=== PATIENT | female | born 1945 | race Caucasian/White ===

== ENCOUNTER 2016-12-30 15:53 | Observation (INO) | payer MEDICARE, BC ==
--- NOTE | 2016-12-30 16:16 | ERNOTE ---
Medical Problem HPI - General Chief Complaint: General Assessment Time Seen by Provider: 12/30/16 16:05 Source: patient Exam Limitations: no limitations - Immun/Allergies/Home Medications Immunizations: IMMUNIZATION HX Immunizations Up to Date Yes History of Influenza Vaccine Yes Hx Pneumococcal Vaccination Yes Allergies/Adverse Reactions: Allergies amoxicillin Allergy (Verified 12/30/16 17:02) Home Medications: HOME MEDICATIONS Albuterol Sulfate 2 puff IH Q6H PRN 09/06/13 [Last Taken Unknown] Benazepril HCl [Lotensin] 10 mg PO DAILY 09/06/13 [Last Taken Unknown] Clonazepam 2 mg PO HS 09/06/13 [Last Taken Unknown] Nystatin 1 appl TP PRN PRN 09/06/13 [Last Taken Unknown] Omeprazole 20 mg PO DAILY 09/06/13 [Last Taken Unknown] Acetaminophen [Acetaminophen Extra Strength] 500 mg PO Q6H PRN 01/02/14 [Last Taken Unknown] Chlorpheniramine Maleate [Chlor-Trimeton] 4 mg PO Q6H 01/02/14 [Last Taken Unknown] Cod Liver Oil/Zinc Oxide [Desitin] 113 gm TP PRN PRN 01/02/14 [Last Taken Unknown] EPINEPHrine [Epipen 2-Julian] 0.3 mg IJ PRN PRN 01/02/14 [Last Taken Unknown] Fluticasone Propionate [Flovent Diskus] 50 mcg IH DAILY 01/02/14 [Last Taken Unknown] Polyvinyl Alcohol [Artificial Tears] 15 ml OP QID PRN 01/02/14 [Last Taken Unknown] Pramipexole Di-HCl [Mirapex] 1.5 mg PO BID 01/02/14 [Last Taken Unknown] Triamterene/Hydrochlorothiazid [Maxzide 37.5MG/25 MG] 1 tab PO DAILY 01/02/14 [ Last Taken Unknown] Cholecalciferol (Vitamin D3) [Vitamin D3] 1,000 unit PO DAILY 12/30/16 [Last Taken Unknown] buPROPion HCL [Wellbutrin SR] 100 mg PO BID 12/30/16 [Last Taken Unknown] - History of Present History Narrative: Here for shortness of breath upon exertion of walking ten steps today when she was going to PT. She has been short of breath for the past two days but today it became worse. At physical therapy staff noted that the patient's heartbeat was irregular. Review of Systems - Review of Systems Constitutional: Present: no symptoms reported EYE: Present: no symptoms reported ENT: Present: no symptoms reported Respiratory: Present: See HPI Cardiology: Present: See HPI Gastrointestinal/Abdominal: Present: no symptoms reported Genitourinary: Present: no symptoms reported Musculoskeletal: Present: no symptoms reported Skin: Present: no symptoms reported - Patient's Past Medical History Patient History - Medical: Anxiety, Depression, GERD, Other Patient History - Cardiac/Respiratory: CPAP/BiPAP Home Use, Sleep Apnea Patient History - Cancer: No Hx of Cancer Patient History - Surgical Procedures: Appendectomy, Hysterectomy, Total Knee Replacement, Other, Hernia Repair Patient History - Other: None LMP (females 10-50): Menopausal - Social History Living Situations: home Abuse History: No History of abuse Psych History: Hx of Anxiety, Hx of Depression Smoking Status: Never smoker Alcohol Use: rarely Drug Use: none - Immunizations Immunizations Up to Date: Yes Hx Pneumococcal Vaccination: Yes History of Influenza Vaccine: Yes Physical Exam - Physical Exam General Appearance: Present: wd/wn, alert, no apparent distress, other - H and appears slightly nervous Neck: Present: normal inspection, nontender Respiratory: Present: no respiratory distress, normal breath sounds, no accessory muscle use, chest nontender, lungs clear - I do not appreciate any crackles upon auscultation of the lungs bilaterally Cardiovascular/Chest: Present: regular rate, rhythm, other - A Chin has a sinus rhythm however after every QRS she has a PVC Extremity Exam: Present: other - patient has 2+ pitting edema in both ankles and she states that this is new is well over the past 2 days. ED Progress - Results and Orders Patient's Lab Results:: I have reviewed the patient's lab results. - Vital Signs Patient's Vital Signs:: I have reviewed the patient's vital signs. Vital Signs: Vital Signs 12/30/16 15:55 Temperature 36.5 C Pulse Rate 67 Respiratory 13 Rate Blood Pressure 172/69 O2 Sat by Pulse 98 Oximetry - EKG EKG: NSR, other - normal sinus rhythm with PVCs - X-Ray X-Ray #1 X-Ray: chest - Progress/Reassessment Chief Complaint: General Assessment Plan - Plan Plan: This is a patient with a history of hypertension who has had progressive dyspnea on exertion which became worse today when walking up a ramp. Her first enzymes are negative however patient does have bilateral pitting edema and this examiner is concerned about her dyspnea on exertion as it has become progressively worse. Such Dr. Arita was counseled in regards to this patient for admission and further investigation. The frequent PVCs that the patient was having earlier on upon admission have since resolved. Of note is that patient now has normal sinus rhythm with infrequent PVCs and d-dimer and TSH and BNP are still pending Departure - Departure Clinical Impression: Exertional dyspnea Disposition: [facility] Condition: Fair
[2016-12-30 16:19] LABS: Hematocrit 36.8 % (37.0-47.0); Hemoglobin 12.5 gm/dL (12.5-16.0); Mean Cell Volume 94.1 fl (78-100); Mean Platelet Volume 11.6 fl (6.0-9.5); Neutrophil # 3.8 K/mm3 (1.3-6.0); Neutrophil % 60.4 % (42-75.0); Platelet Count 168 K/mm3 (150-450); Red Blood Count 3.91 M/mm3 (4.2-5.4); White Blood Count 6.3 K/mm3 (4.0-10.5)
[2016-12-30 16:46] LABS: Troponin I Less than 0.017 ng/ml (0.00-0.10)
[2016-12-30 16:50] LABS: ALT 26 U/L (19-67); AST 25 U/L (0-48); Albumin * 3.8 gm/dl (3.4-5.0); Alkaline Phosphatase * 54 U/L (50-170); Anion Gap 14.1 mmol/L (6.8-13.8); BUN/Creatinine Ratio 17.5 (9.0-21.6); Bilirubin, Total 0.3 mg/dL (0.0-1.1); Blood Urea Nitrogen 24 mg/dL (3-23); CKMB 5.1 ng/mL (0.0-9.0); Ca. Corrected For Albumin 8.3 mg/dL (8.4-10.2); Calcium * 8.5 mg/dL (7.9-10.9); Carbon Dioxide 27.2 mmol/L (24-32.6); Chloride 105 mmol/L (97-106); Glucose * 105 mg/dL (70-110); Magnesium 1.9 mg/dL (1.2-2.8); Potassium 4.3 mmol/L (3.4-4.6); Sodium 142 mmol/L (132-142); Total Protein 7.4 gm/dL (6.2-8.2)
[2016-12-30 17:33] LABS: TSH * 2.378 uIU/mL (0.358-3.74)
[2016-12-30] MEDS ORDERED: POTASSIUM CHLORIDE 20 MEQ TABLET.SA PO SCH (21:25)
[2016-12-30] MEDS ORDERED: FUROSEMIDE 10 MG/ML VIAL IV SCH (21:25)
[2016-12-30] MEDS ORDERED: ACETAMINOPHEN 500 MG TABLET PO PRN (22:04)
[2016-12-30] MEDS ORDERED: EPINEPHrine 0.3 MG DISP.SYRIN IM PRN (22:04)
[2016-12-30] MEDS ORDERED: COD LIVER OIL/ZINC OXIDE 113 APPL TUBE TP PRN (22:04)
[2016-12-30] MEDS ORDERED: POLYVINYL ALCOHOL 150 DROP BTL OP PRN (22:04)
--- NOTE | 2016-12-30 22:08 | HP ---
Chief Complaint - Chief Complaint Date of Service: 12/30/16 Time of Service: 20:00 Chief Complaint: "Worsening SOB with exertion, increasing leg swelling. ". Source of HPI- Pt; reliable, ER provider report. History of Present Illness: Mrs. Juarez is a 71-yr-old [place] pt who normally sees Dr. Gwyn Lord, a family practice physician in [place]. Her PMH is significant for: Asthma, Chronic Major depression, Fibromyalgia, Linchen Sclerosus, HTN, HLD, Restless Leg Syndrome, Obstructive Sleep Apnea & Osteoarthritis. Pt states that for the past 9 months, she has been dealing with SOB and her Internal Medicine physician at the [facility] has been working her up for the problem. She states that she was referred to a Room Service Bellhop at the [facility] and her PFTs were found to be normal and she will be having the similar test in 2 weeks. She reports that her SOB is mostly worsened with activities that cause exertion such as walking a longer distance or any area that has some incline. Otherwise, she says she can carry out other ADLs with ease and is usually 'able to push a cartful of supplies at [employer] without any SOB.' She can also go up and down the stairs at her home without any problems with her breathing. Today, she had an appt. at the PT facility here at [facility]. She states that she intentionally parked her car 6 car lengths to see how much activity she can tolerate. She reports that by the time she entered the building, she felt very SOB. The staff found out that her HR irregular during the PT session and she was referred to the Walk-in clinic. She denies fevers, coughing & chest pain. She report noting increasing swelling on her BLE within the last 2 days with the LT> RT. She however has no difficulty in assuming a flat lying position during sleep. During evaluation at the ED, the CXR did not have any obvious findings to suggest Pneumonia, Pulmonary vascular congestion or pleural effusion.The lab-work involving D-dimer, BNP,CBC & BMP were all unremarkable. The EKG showed NSR with PVCs and troponin was negative. She will be admitted under observation status for remote telemetry monitoring. - Patient's Past Medical History Patient History - Medical: Anxiety, Depression, Fibromyalgia, GERD, Osteoarthritis, Other - Fibromyalgia, Linchen Sclerosus Patient History - Cardiac/Respiratory: Asthma, Hypertension, Hyperlipidemia, CPAP/BiPAP Home Use, Sleep Apnea, Other Patient History - Cancer: No Hx of Cancer Patient History - Surgical Procedures: Appendectomy, Hysterectomy, Total Knee Replacement, Other, Hernia Repair Patient History - Other: None LMP (females 10-50): Menopausal - Family History Mother Family History - Medical: , Alzheimer's Disease, Diabetes Type 2 Insulin Dependent, Osteoporosis Family History - Cardiac/Respiratory: CVA/Stroke, Hypertension Family History - Cancer: No pertinent family hx Father Family History - Medical: , Other Family History - Cardiac/Respiratory: Hypertension Family History - Cancer: No pertinent family hx Brother Family History - Medical: Depression, Seizures Family History - Cardiac/Respiratory: CVA/Stroke, Myocardial Infarction Family History - Cancer: No pertinent family hx Sister Family History - Medical: Arthritis, Depression, Osteoarthritis, Other Family History - Cardiac/Respiratory: No pertinent hx Family History - Cancer: Breast Children Family History - Medical: Alcohol Abuse, Depression, Other Family History - Cardiac/Respiratory: No pertinent hx Family History - Cancer: No pertinent family hx - Social History Living Situations: spouse Abuse History: No History of abuse Psych History: Hx of Anxiety, Hx of Depression Smoking Status: Never smoker Have you smoked in the past 12 months: No Do you dip or chew tobacco: No Patient requests Smoking Cessation Consult: No Initiate information on Smoking Cessation: No Alcohol Use: rarely Drug Use: none - Immunizations Immunizations Up to Date: Yes Hx Pneumococcal Vaccination: Yes History of Influenza Vaccine: Yes Review Of Systems (GEN) - Review of Systems Generalized/Overall Review: Absent: Weakness, Chills, Fever, Malaise EENTM: Absent: Eye Pain, Blurred Vision, Tearing, Ear Pain, Ear Discharge Respiratory: Present: Shortness of Breath. Absent: Cough, Orthopnea, Stridor Cardiac: Present: Edema. Absent: Chest Pain, Palpitations, Syncope Abdominal: Absent: Nausea, Vomiting, Hematemesis, Abdominal Pain, Constipation, Diarrhea Genitourinary: Absent: Burning, Itching, Urgency, Frequency Musculoskeletal: Absent: Joint Pain, Back Pain, Joint Swelling, Muscle Pain Neurological: Absent: Headache, Anxiety, Depressed Skin: Absent: Dryness, Lesions, Rash Endocrine: Absent: Intolerance to Cold, Intolerance to Heat Misc: All systems neg except as marked Immunizations: IMMUNIZATION HX Immunizations Up to Date Yes History of Influenza Vaccine Yes Hx Pneumococcal Vaccination Yes Allergies/Adverse Reactions: Allergies Allergy/AdvReac Type Severity Reaction Status Date / Time amoxicillin Allergy Verified 12/30/16 17:02 Home Medications: HOME MEDICATIONS Albuterol Sulfate 2 puff IH Q6H PRN 09/06/13 [Last Taken Unknown] Benazepril HCl [Lotensin] 10 mg PO DAILY 09/06/13 [Last Taken Unknown] Clonazepam 2 mg PO HS 09/06/13 [Last Taken Unknown] Nystatin 1 appl TP PRN PRN 09/06/13 [Last Taken Unknown] Omeprazole 20 mg PO DAILY 09/06/13 [Last Taken Unknown] Acetaminophen [Acetaminophen Extra Strength] 500 mg PO Q6H PRN 01/02/14 [Last Taken Unknown] Chlorpheniramine Maleate [Chlor-Trimeton] 4 mg PO Q6H 01/02/14 [Last Taken Unknown] Cod Liver Oil/Zinc Oxide [Desitin] 113 gm TP PRN PRN 01/02/14 [Last Taken Unknown] EPINEPHrine [Epipen 2-Julian] 0.3 mg IJ PRN PRN 01/02/14 [Last Taken Unknown] Fluticasone Propionate [Flovent Diskus] 50 mcg IH DAILY 01/02/14 [Last Taken Unknown] Polyvinyl Alcohol [Artificial Tears] 15 ml OP QID PRN 01/02/14 [Last Taken Unknown] Pramipexole Di-HCl [Mirapex] 1.5 mg PO BID 01/02/14 [Last Taken Unknown] Triamterene/Hydrochlorothiazid [Maxzide 37.5MG/25 MG] 1 tab PO DAILY 01/02/14 [ Last Taken Unknown] Acetaminophen 500 mg PO TID PRN 12/30/16 [Last Taken Unknown] Cholecalciferol (Vitamin D3) [Vitamin D3] 1,000 unit PO DAILY 12/30/16 [Last Taken Unknown] Cyanocobalamin (Vitamin B-12) [Vitamin B12] 12.5 mg PO DAILY 12/30/16 [Last Taken Unknown] buPROPion HCL [Wellbutrin SR] 100 mg PO BID 12/30/16 [Last Taken Unknown] Exam - Exam Vital Signs: Vital Signs - Last Taken Temp 36.7 C 12/30/16 19:49 Pulse 74 12/30/16 21:36 Resp 14 12/30/16 19:49 BP 142/64 12/30/16 21:36 Pulse Ox 98 12/30/16 19:49 Constitutional: Present: Alert, Oriented x3, Cooperative ENT Exam: Present: normal ENT inspection Eye Exam: bilateral eye: normal inspection, PERRL Neck: Present: non-tender, full range of motion, supple Back Exam: Present: no CVA tenderness Breasts: Present: Exam deferred Respiratory: Present: chest non-tender, lungs clear, normal breath sounds Cardiovascular/Chest: Present: normal peripheral pulses, regular rate, rhythm, no chest tenderness, no murmur Abdomen: Present: Normal bowel sounds, soft, nontender /Rectal: Present: Exam deferred Extremity: Present: normal range of motion, non-tender, normal inspection Skin Exam: Present: warm/dry, no cyanosis Lymphatic: Present: no adenopathy Neurologic: Present: alert, normal mood/affect, oriented x 3 Appearance: Present: appropriate appearance, appropriate insight Eye contact: Present: cooperative, good eye contact, normal speech Thoughts: Present: normal thought pattern, no apparent hallucination Diagnostic Studies: Laboratory Results WBC 6.3 K/mm3 (4.0-10.5) 12/30/16 16:09 RBC 3.91 M/mm3 (4.2-5.4) L 12/30/16 16:09 Hgb 12.5 gm/dL (12.5-16.0) 12/30/16 16:09 Hct 36.8 % (37.0-47.0) L 12/30/16 16:09 MCV 94.1 fl (78-100) 12/30/16 16:09 MCH 32.0 pg (27-31) H 12/30/16 16:09 MCHC 34.0 g/dl (32-36) 12/30/16 16:09 RDW 13.0 % (11.5-14.0) 12/30/16 16:09 Plt Count 168 K/mm3 (150-450) 12/30/16 16:09 MPV 11.6 fl (6.0-9.5) H 12/30/16 16:09 Immature Gran % (Auto) 0.30 % (0.001-0.429) 12/30/16 16:09 Immature Gran # (Auto) 0.02 K/mm3 (0.000-0.0310) 12/30/16 16:09 Neutrophils % 60.4 % (42-75.0) 12/30/16 16:09 Lymphocytes % 29.6 % (20-51) 12/30/16 16:09 Monocytes % 7.5 % (0.0-9) 12/30/16 16:09 Eosinophils % 1.6 % (0.0-3.0) 12/30/16 16:09 Basophils % 0.6 % (0.0-1.0) 12/30/16 16:09 Nucleated RBC % 0.0 k/mm3 (0-1) 12/30/16 16:09 Neutrophils # 3.8 K/mm3 (1.3-6.0) 12/30/16 16:09 Lymphocytes # 1.9 k/mm3 (1.5-3.5) 12/30/16 16:09 Monocytes # 0.5 k/mm3 (0.0-1.0) 12/30/16 16:09 Eosinophils # 0.1 k/mm3 (0.0-0.7) 12/30/16 16:09 Absolute Basophils 0.0 k/mm3 (0.0-0.1) 12/30/16 16:09 D-Dimer 0.43 mg/L (0.19-0.49) 12/30/16 16:09 Sodium 142 mmol/L (132-142) 12/30/16 16:09 Plasma Sodium 142 mmol/L (130-142) 12/30/16 16:09 Potassium 4.3 mmol/L (3.4-4.6) 12/30/16 16:09 Chloride 105 mmol/L (97-106) 12/30/16 16:09 Carbon Dioxide 27.2 mmol/L (24-32.6) 12/30/16 16:09 Anion Gap 14.1 mmol/L (6.8-13.8) H 12/30/16 16:09 BUN 24 mg/dL (3-23) H 12/30/16 16:09 Creatinine 1.37 mg/dL (0.4-1.4) 12/30/16 16:09 Est GFR (Non-Af Amer) 40 mL/min (60-130) L D 12/30/16 16:09 BUN/Creatinine Ratio 17.5 (9.0-21.6) 12/30/16 16:09 Random Glucose 105 mg/dL (70-110) 12/30/16 16:09 Calcium 8.5 mg/dL (7.9-10.9) 12/30/16 16:09 Calcium Adj for Albumin 8.3 mg/dL (8.4-10.2) L 12/30/16 16:09 Magnesium 1.9 mg/dL (1.2-2.8) 12/30/16 16:09 Total Bilirubin 0.3 mg/dL (0.0-1.1) 12/30/16 16:09 AST 25 U/L (0-48) 12/30/16 16:09 ALT 26 U/L (19-67) 12/30/16 16:09 Alkaline Phosphatase 54 U/L (50-170) 12/30/16 16:09 CK-MB (CK-2) 5.1 ng/mL (0.0-9.0) 12/30/16 16:09 Troponin I Less than 0.017 ng/ml (0.00-0.10) 12/30/16 16:09 B-Natriuretic Peptide 305 pg/mL (5-325) 12/30/16 16:09 Total Protein 7.4 gm/dL (6.2-8.2) 12/30/16 16:09 Albumin 3.8 gm/dl (3.4-5.0) 12/30/16 16:09 TSH 2.378 uIU/mL (0.358-3.74) 12/30/16 16:09 Assessment/Plan - Assessment/Plan (1) Bilateral lower extremity edema Assessment: Pt noted to have + 1-2 pitting bilateral lower extremity edema and reported noting the increasing swelling over the last 2-3 days. The CXR did not show any increased pulmonary vascular congestion, the cardiac size was within normal limits, the BNP was also in the NR, No orthopnea or Parosxysmal Nocturnal dyspnea and no JVD and therefore Heart failure is unlikely at this time, but also possible and suspected given history of HTN and pt's report of Dyspnea with exertion. Will give an initial dose of Lasix to see if it improves her CAMPBELL and since it's effective in edema treatment. May need to consider an Echocardiogram to check for any valvular disease. With her BLE swelling, DVT is also likely and may need additional imaging to rule out DVT, and even though her D-dimer was negative, it cannot be solely used to r/o DVT. Also consider checking for kidney disease with microscopic urinarylsis. Her liver enzymes: AST , ALT, total bilirubin, ALP & Albumin were all in NR therefore liver disease is unlikely. Her Bilateral Edema is something that can be managed as outpatient BUT may need venous duplex to r/o DVT prior to discharge. She will be encouraged to elevate legs during sleep. Problem: Acute (2) Exertional dyspnea Assessment: No cough, fever, or chest pain reported. The CXR showed LT Basilar atelectasis. Encourage coughing and deep breathing and use of IS, otherwise plan is as above. Problem: Acute (3) HTN (hypertension) Assessment: Stable- Continue HCTZ and benazepril. Problem: Chronic Qualifiers: Hypertension type: essential hypertension Qualified Code(s): I10 - Essential (primary) hypertension (4) Ventricular premature beats Assessment: Noted to have PVCs on presentation at the ED which resolved. She was placed on telemetry monitoring and while on the med- surg floor, she continued having episodes of PVCs noted mostly with activity such as ambulation but was asymptomatic. May need ambulatory ECG monitoring or monitoring during graded exercise. Consider checking for other electrolyte abnormalities e.g magnesium. Pottasium and TSH are in NR. Problem: Acute (5) Obstructive sleep apnea Assessment: Stable- Continue CPAP at night. Problem: Chronic (6) Depression Assessment: Stable- On mirapex & wellbutrin. Problem: Chronic (7) HLD (hyperlipidemia) Problem: Chronic
[2016-12-30] MEDS ORDERED: clonazePAM 1 MG TABLET PO SCH (22:30)
[2016-12-30] MEDS ORDERED: ALBUTEROL SULFATE 2.5 MG/0.5 ML VIAL.NEB IH PRN (22:30)
[2016-12-30] MEDS ORDERED: buPROPion HCL 100 MG TABLET PO ONE (22:45)
[2016-12-30] MEDS ORDERED: NYSTATIN 15 APPL TUBE TP PRN (22:45)
[2016-12-30] MEDS: PRAMIPEXOLE DI-HCL 0.5 MG TABLET PO SCH (22:55)
[2016-12-31] MEDS ORDERED: BUDESONIDE 0.5 MG/2 ML VIAL.NEB IH ONE (05:58)
[2016-12-31] MEDS ORDERED: ALBUTEROL SULFATE 2.5 MG/3 ML VIAL.NEB IH PRN (06:36)
[2016-12-31] MEDS ORDERED: BUDESONIDE 0.5 MG/2 ML VIAL.NEB IH SCH ×2 (07:00→09:00)
[2016-12-31] MEDS ORDERED: PANTOPRAZOLE SODIUM 20 MG TABLET.DR PO SCH (07:00)
[2016-12-31 07:01] LABS: BUN/Creatinine Ratio 17.3 (9.0-21.6); Carbon Dioxide 30.3 mmol/L (24-32.6); Estimated Creat Clear 21.9; Potassium 4.3 mmol/L (3.4-4.6)
[2016-12-31] MEDS: Chlorpheniramine Maleate 4 MG PO SCH ×3 (07:32→10:25)
[2016-12-31 07:38] LABS: Urine Bilirubin Negative (NEGATIVE); Urine Blood Negative /ul (NEGATIVE); Urine Ketone Negative (NEGATIVE); Urine Nitrite Negative (NEGATIVE); Urine Protein Negative (NEGATIVE); Urine Specific Gravity <=1.005 SP.GR. (1.005-1.010); Urine Urobilinogen Normal (NORMAL)
[2016-12-31 08:19] VITALS: BP 135/68
[2016-12-31] MEDS ORDERED: buPROPion HCL 150 MG TABLET.SA PO SCH (09:00)
[2016-12-31] MEDS ORDERED: BENAZEPRIL HCL 10 MG TABLET PO SCH (09:00)
[2016-12-31] MEDS ORDERED: ENALAPRIL MALEATE 5 MG TABLET PO SCH (09:00)
[2016-12-31] MEDS ORDERED: TRIAMTERENE/HYDROCHLOROTHIAZID 1 TAB TABLET PO SCH (09:00)
[2016-12-31] MEDS ORDERED: CHOLECALCIFEROL 1,000 UNIT CAPSULE PO SCH (09:00)
[2016-12-31] MEDS: PRAMIPEXOLE DI-HCL 0.5 MG TABLET PO SCH (09:06)
[2016-12-31 09:22] LABS: Urine Appearance Clear; Urine Bacteria None Seen; Urine Color Yellow; Urine RBC None Seen /hpf (0-5); Urine WBC None Seen /hpf (0-5)
[2016-12-31] MEDS ORDERED: buPROPion HCL 150 MG TABLET.SA PO ONE (09:45)
--- NOTE | 2016-12-31 09:49 | DS ---
(1) Bilateral lower extremity edema Problem: Acute (2) Exertional dyspnea Problem: Acute (3) Ventricular premature beats Problem: Acute Description of Stay: ADMISSION DATE: 12/30/2016 DISCHARGE DATE: 12/31/2016 ADMISSION HPI by MALLIKA Thomas: Mrs. Juarez is a 71-yr-old [place] pt who normally sees Dr. Gwyn Lord, a family practice physician in [place]. Her PMH is significant for: Asthma, Chronic Major depression, Fibromyalgia, Linchen Sclerosus, HTN, HLD, Restless Leg Syndrome, Obstructive Sleep Apnea & Osteoarthritis. Pt states that for the past 9 months, she has been dealing with SOB and her Internal Medicine physician at the [facility] has been working her up for the problem. She states that she was referred to a Educational Aid at the [facility] and her PFTs were found to be normal and she will be having the similar test in 2 weeks. She reports that her SOB is mostly worsened with activities that cause exertion such as walking a longer distance or any area that has some incline. Otherwise, she says she can carry out other ADLs with ease and is usually 'able to push a cartful of supplies at [employer] without any SOB.' She can also go up and down the stairs at her home without any problems with her breathing. Today, she had an appt. at the PT facility here at [facility]. She states that she intentionally parked her car 6 car lengths to see how much activity she can tolerate. She reports that by the time she entered the building, she felt very SOB. The staff found out that her HR irregular during the PT session and she was referred to the Walk-in clinic. She denies fevers, coughing & chest pain. She report noting increasing swelling on her BLE within the last 2 days with the LT> RT. She however has no difficulty in assuming a flat lying position during sleep. During evaluation at the ED, the CXR did not have any obvious findings to suggest Pneumonia, Pulmonary vascular congestion or pleural effusion. The lab-work involving D-dimer, BNP,CBC & BMP were all unremarkable. The EKG showed NSR with PVCs and troponin was negative. She will be admitted under observation status for remote telemetry monitoring. HOSPITAL COURSE: The patient presented to the emergency department with dyspnea on exertion which has been progressively getting worse over the past 8-9 months. The patient does have a history of asthma but she is only on a rescue albuterol inhaler as needed which she states she rarely uses. Workup in the emergency department revealed a d-dimer that was unremarkable, chest x-ray that was also unremarkable and her cardiac enzymes were trended overnight and again, these were also unremarkable. A urinalysis with microscopy was ordered and showed no evidence of the patient spilling protein in her urine. The patient did have frequent PVCs noted on telemetry; thus, I would like the patient to establish care with cardiology for further evaluation and management. The patient was given IV Lasix 60 mg on admission for her lower extremities edema. The patient had a net negative fluid balance of nearly 2800cc during her stay but this did not alter her complaints of dyspnea on exertion. Although the patients clinical picture, chest x-ray and laboratory findings are not consistent with congestive heart failure, one could consider getting an outpatient echocardiogram for further evaluation. After receiving the IV furosemide, the patients creatinine was minimally elevated at 1.56 the following morning. I have placed an order for the patient to get a BMP on 01/02/2017 to make sure her kidney function returns to normal. I believe that the patients presentation is most likely secondary to asthma +/- deconditioning. The patient is already scheduled to see a inorganic chemical technician in [place] next week. Although the patient would likely benefit from a daily maintenance therapy for her asthma, I did not make any changes in the patients home medications as she has close follow-up already scheduled with the inorganic chemical technician. The patient was discharged home in stable condition. FOLLOW-UP APPOINTMENTS: -Recheck BMP on 01/02/2017 -Follow-up with PCP within 1 week -Keep previously scheduled appointment with Pulmonology next week -Please schedule patient to see Cardiology here at [facility] for frequent PACs and PVCs. Please make appointment for first available. NEW OR CHANGED MEDICATIONS: NONE DISCONTINUED MEDICATIONS: NONE RADIOLOGY REPORTS: Single view CXR on 12/30/2016 showed: patient is slightly rotated to the patient s right. Normal inflation of lungs. No definite consolidation. Linear opacity at the left lung base suggestive of atelectasis or scar. Pulmonary vasculature is normal. No pneumothorax or pleural fluid collections apparent. There is a skin fold artifact overlying the right mid to lower lung field. Cardiac and mediastinal silhouettes are normal for technique. Trachea is in normal position given patient positioning. Osseous structures are grossly intact. Degenerative changes of the spine and shoulders noted. IMPRESSION: left basilar atelectasis. Otherwise no definite acute findings noted. Procedures Performed: none Results and Findings: Laboratory Tests 12/30/16 12/30/16 12/30/16 16:09 16:09 16:09 WBC 6.3 Hgb 12.5 Hct 36.8 L Plt Count 168 D-Dimer 0.43 Plasma Sodium Potassium Chloride Carbon Dioxide Anion Gap BUN Creatinine 1.37 Est GFR (Non-Af Amer) BUN/Creatinine Ratio Random Glucose Calcium Calcium Adj for Albumin 8.3 L Magnesium 1.9 Total Bilirubin 0.3 AST 25 ALT 26 Alkaline Phosphatase 54 CK-MB (CK-2) 5.1 Troponin I Less than 0.017 B-Natriuretic Peptide Total Protein 7.4 Albumin 3.8 TSH Urine Color Urine Appearance Urine pH Ur Specific [place] Urine Protein Urine Glucose (UA) Urine Ketones Urine Blood Urine Nitrate Urine Bilirubin Urine Urobilinogen Ur Leukocyte Esterase Urine RBC Urine WBC Ur Epithelial Cells Urine Bacteria 12/30/16 12/31/16 12/31/16 16:09 05:45 07:15 WBC Hgb Hct Plt Count D-Dimer Plasma Sodium 144 H Potassium 4.3 Chloride 104 Carbon Dioxide 30.3 Anion Gap 14.0 H BUN 27 H Creatinine 1.56 H Est GFR (Non-Af Amer) 35 L BUN/Creatinine Ratio 17.3 Random Glucose 92 Calcium 9.0 Calcium Adj for Albumin Magnesium 2.0 Total Bilirubin AST ALT Alkaline Phosphatase CK-MB (CK-2) Troponin I B-Natriuretic Peptide 305 Total Protein Albumin TSH 2.378 Urine Color Yellow Urine Appearance Clear Urine pH 6.0 Ur Specific [place] <=1.005 Urine Protein Negative Urine Glucose (UA) Negative Urine Ketones Negative Urine Blood Negative Urine Nitrate Negative Urine Bilirubin Negative Urine Urobilinogen Normal Ur Leukocyte Esterase Negative Urine RBC None seen Urine WBC None seen Ur Epithelial Cells Trace Urine Bacteria None seen Discharge Disposition: Home self care Disposition: Home self-care Condition: Stable Discharge Activity: Activity as tolerated Discharge Diet: Low salt, Resume usual diet Referrals: Gwyn Lord MD [Primary Care Provider] - Additional Patient Instructions (free text): TCM appointment at discharge. Call Mireille at x [phone] at discharge. -Follow-up with PCP within 1 week -Keep previously scheduled appointment with Pulmonology next week -Please schedule patient to see Cardiology here at [facility] for frequent PACs and PVCs. Please make appointment for first available. Complete Home Medications List: Complete Home Medication List: Albuterol Sulfate 2 puff IH Q6H PRN 09/06/13 Nystatin 1 appl TP PRN PRN 09/06/13 RX: Benazepril HCl [Lotensin] 10 mg PO DAILY 09/06/13 RX: Clonazepam 2 mg PO HS 09/06/13 RX: Omeprazole 20 mg PO DAILY 09/06/13 RX: Acetaminophen [Acetaminophen Extra Strength] 500 mg PO Q6H PRN 01/02/14 RX: Chlorpheniramine Maleate [Chlor-Trimeton] 4 mg PO Q6H 01/02/14 RX: Cod Liver Oil/Zinc Oxide [Desitin] 113 gm TP PRN PRN 01/02/14 RX: EPINEPHrine [Epipen 2-Julian] 0.3 mg IJ PRN PRN 01/02/14 RX: Fluticasone Propionate [Flovent Diskus] 50 mcg IH DAILY 01/02/14 RX: Polyvinyl Alcohol [Artificial Tears] 15 ml OP QID PRN 01/02/14 RX: Pramipexole Di-HCl [Mirapex] 1.5 mg PO BID 01/02/14 RX: Triamterene/Hydrochlorothiazid [Maxzide 37.5MG/25 MG] 1 tab PO DAILY RX: Acetaminophen 500 mg PO TID PRN 12/30/16 RX: Cholecalciferol (Vitamin D3) [Vitamin D3] 1,000 unit PO DAILY 12/30/16 RX: Cyanocobalamin (Vitamin B-12) [Vitamin B12] 12.5 mg PO DAILY 12/30/16 RX: buPROPion HCL [Wellbutrin SR] 100 mg PO BID 12/30/16 Amb Orders for Discharge: Basic Metabolic Panel Time Frame: 01/02/17, Location: Determined By Patient
== END 2016-12-31 12:15 | disposition home or self-care (01) ==
LOC: ER 15:53 → UNDOADMOB 17:21 → MS 17:21
PROVIDERS: ADMIT Internal Medicine; ATTEND Internal Medicine
DX: R60.0 Localized edema (principal); R06.02 Shortness of breath; I10 Essential (primary) hypertension; J45.909 Unspecified asthma, uncomplicated; I49.3 Ventricular premature depolarization; G47.33 Obstructive sleep apnea (adult) (pediatric); M79.7 Fibromyalgia; L90.0 Lichen sclerosus et atrophicus
CPT/HCPCS: 36415; 71010; 80048; 80053; 81001; 82553; 83735; 83880; 84443; 84484; 85025; 85379; 93005; 94640; 94660; 96374; 99283; G0378